=== PATIENT | female | born 1970 | race Caucasian/White ===

== ENCOUNTER 2020-06-05 09:44 | Emergency (ER) | payer SELFPAY ==
[2020-06-05] MEDS ORDERED: Albuterol Sulfate 2.5 mg/0.5 ml Neb ONE ×2 (09:59→10:10)
[2020-06-05] MEDS ORDERED: methylPREDNISolone Sod Succ/PF 125 MG/2 ML VIAL ONE (10:03)
== END 2020-06-05 10:58 | disposition home or self-care (01) ==
LOC: BURERS 09:44
DX: J45.901 Unspecified asthma with (acute) exacerbation (principal)
CPT/HCPCS: 71045; 94760; 96372; J2930; J7611; J7620

== ENCOUNTER 2020-06-28 11:48 | Emergency (ER) | payer SELFPAY ==
[2020-06-28] MEDS ORDERED: methylPREDNISolone Sod Succ/PF 125 MG/2 ML VIAL ONE (12:39)
[2020-06-28] MEDS ORDERED: cefTRIAXone\\ROCEPHIN 1 GM VIAL ONE (12:39)
--- NOTE | 2020-06-28 12:55 | RAD ---
RADIOGRAPH CHEST 2 VIEWS: DATE: 06/28/2020 HISTORY: 50-year-old female with cough. COMPARISON: 06/05/2020 FINDINGS: The lungs are clear. The cardiomediastinal silhouette and hilar shadows appear normal. There is no pl eural effusion or pneumothorax. Old left midclavicular fracture deformity. No interval change overall.. IMPRESSION: No active disease
== END 2020-06-28 13:37 | disposition home or self-care (01) ==
LOC: BURERS 11:48
DX: J45.901 Unspecified asthma with (acute) exacerbation (principal); Z79.51 Long term (current) use of inhaled steroids
CPT/HCPCS: 71046; 94640; 96372; J0696; J2930; J7620

== ENCOUNTER 2020-12-19 11:25 | Emergency (ER) | payer SELFPAY ==
[2020-12-19] MEDS ORDERED: methylPREDNISolone Sod Succ/PF 125 MG/2 ML VIAL ONE (12:03)
[2020-12-19] MEDS ORDERED: Albuterol Sulfate 1.25 MG/3 ML NEB ONE (12:14)
== END 2020-12-19 13:13 | disposition home or self-care (01) ==
LOC: BURERS 11:25
DX: J45.901 Unspecified asthma with (acute) exacerbation (principal)
CPT/HCPCS: 94640; 96372; J2930; J7620